=== PATIENT | female | born 1995 | race Caucasian/White ===

== ENCOUNTER 2016-12-11 14:56 | Emergency (ER) | payer MEDICAID ==
[2016-12-11] MEDS ORDERED: TRAMADOL 50 MG TAB ONE (15:42)
[2016-12-11] MEDS ORDERED: DIPHENHYDRAMINE 25 MG CAP ONE (16:03)
== END 2016-12-11 16:10 | disposition home or self-care (01) ==
LOC: ER 14:56
DX: K08.89 Other specified disorders of teeth and supporting structures (principal); K02.9 Dental caries, unspecified; F17.210 Nicotine dependence, cigarettes, uncomplicated